=== PATIENT | male | born 1955 | race Caucasian/White ===

== ENCOUNTER 2019-02-15 00:04 | Emergency (ER) | payer OTHER ==
[2019-02-15] MEDS ORDERED: Amoxicillin/Clavulanate TAB* 875 MG PO ONE (00:22)
--- NOTE | 2019-02-15 00:25 | ED ---
Bite Injury/Animal - HPI Summary HPI Summary: This pt is a 63 y/o male presenting to [facility] c/o cat scratches to right side of face and bilateral arms today. Pt states his mother last year and was bringing home his mother's cat from [place]. Pt notes as they were getting out of the car the cat tried to run off but the patient held on to it. The cat scratched the patient on the right side of his face and bilateral arms. Patient states he quickly rinsed the scratches prior to coming to the ED. Pt does not know if the cat is UTD on rabies vaccine. He states the cat is an outdoor cat but the cat has not been involved in any fights lately. Patient has the cat in his laundry room currently. NKDA. - History of Current Complaint Chief Complaint: EDAnimalBite Stated Complaint: CAT SCRATCHES PER PT Time Seen by Provider: 02/15/19 00:18 Hx Obtained From: Patient Onset of Injury: Still Present Type of Bite: Pet - Cat Hx of Bite: Provoked by: - holding on to the cat after cat tried to run out of car Severity Currently: Moderate Pain Intensity: 4 Pain Scale Used: 0-10 Numeric Character: Abrasion/Laceration Aggravating Factor(s): Nothing Alleviating Factor(s): Nothing Associated Signs And Symptoms: Negative: Fever, Numbness/Tingling Animal Available for Observation: Yes - Allergies/Home Medications Allergies/Adverse Reactions: Allergies Allergy/AdvReac Type Severity Reaction Status Date / Time No Known Allergies Allergy Verified 02/15/19 00:07 PMH/Surg Hx/FS Hx/Imm Hx Endocrine/Hematology History: Denies: Hx Diabetes Cardiovascular History: Denies: Hx Hypertension - Surgical History Surgery Procedure, Year, and Place: R knee arthroscopic Infectious Disease History: No Infectious Disease History: Denies: Traveled Outside the [place] in Last 30 Days - Family History Known Family History: Positive: Non-Contributory - Social History Alcohol Use: Occasionally Substance Use Type: Reports: None Smoking Status (MU): Never Smoked Tobacco Review of Systems Negative: Fever Cardiovascular: Negative Respiratory: Negative Gastrointestinal: Negative Skin: Other - POSITIVE: cat scratches on face, arms, and hands. All Other Systems Reviewed And Are Negative: Yes Physical Exam - Summary Physical Exam Summary: Appearance: Well-appearing, Well-nourished, lying in bed comfortable Skin: Warm, dry. Innumerable scratches along both forearms, right cheek, and several fingers on left hand. Eyes: sclera anicteric, no conjunctival pallor ENT: mucous membranes moist Neck: deferred Respiratory: No signs of respiratory distress Cardiovascular: Appears well perfused, pulses are nml Abdomen: deferred Musculoskeletal: Moving all 4 extremities without obvious discomfort Neurological: Awake and alert, mentation is normal, speech is fluent and appropriate Psychiatric: affect is normal, does not appear anxious or depressed Triage Information Reviewed: Yes Vital Signs On Initial Exam: Initial Vitals Temp Pulse Resp BP Pulse Ox 98.0 F 72 15 191/98 98 02/15/19 00:05 02/15/19 00:05 02/15/19 00:05 02/15/19 00:05 02/15/19 00:05 Vital Signs Reviewed: Yes Procedures - Sedation Patient Received Moderate/Deep Sedation with Procedure: No Diagnostics - Vital Signs Vital Signs Temp Pulse Resp BP Pulse Ox 02/15/19 00:05 98.0 F 72 15 191/98 98 - Laboratory Lab Statement: Any lab studies that have been ordered have been reviewed, and results considered in the medical decision making process. Bite Injury Course/Dx - Course Assessment/Plan: Pt is a 63 y/o male presenting to [facility] c/o cat scratches to right side of face and bilateral arms today. He quickly rinsed the scratches prior to coming to the ED. Pt does not know if the cat is UTD on rabies vaccine. He states the cat is an outdoor cat but the cat has not been involved in any fights lately. Patient has the cat in his laundry room currently. On exam pt has innumerable scratches along both forearms, right cheek, and several fingers on left hand. Wounds were cleaned by soapy water by the nurse. Pt will be discharged home with follow up from his PCP. He was given a prescription for prophylaxis antibiotic, Augmentin. He was given instructions to return to the ED for any new or worsening symptoms. - Diagnoses Provider Diagnosis: Cat scratch Discharge ED - Sign-Out/Discharge Documenting (check all that apply): Patient Departure - Discharge home - Discharge Plan Condition: Stable Disposition: HOME Prescriptions: Amoxicillin/Clavulanate TAB* [Augmentin TAB 875*] 875 mg PO BID 5 Days #10 tab Patient Education Materials: Animal Bite (ED) Referrals: Teena Aguirre MD [Primary Care Provider] - If Needed - Billing Disposition and Condition Condition: STABLE Disposition: Home - Attestation Statements Document Initiated by Babar: Yes Documenting Charleneibe: Olivia Padilla Provider For Whom Babar is Documenting (Include Credential): Santiago Fowler MD Scribe Attestation: Olivia Cheema scribed for Santiago Fowler MD on 02/15/19 at 1822. Scribe Documentation Reviewed: Yes Provider Attestation: The documentation as recorded by the Olivia kaur accurately reflects the service I personally performed and the decisions made by me, Santiago Fowler MD Status of Scribe Document: Viewed
[2019-02-15 01:46] VITALS: BP 171/92
== END 2019-02-15 01:18 | disposition home or self-care (01) ==
LOC: ED 00:04
DX: S00.81XA Abrasion of other part of head, initial encounter (principal); S40.812A Abrasion of left upper arm, initial encounter; S40.811A Abrasion of right upper arm, initial encounter; W55.03XA Scratched by cat, initial encounter; Y92.9 Unspecified place or not applicable
CPT/HCPCS: 99282; A9270-GY